=== PATIENT | female | born 1950 | race Caucasian/White ===

== ENCOUNTER → 2016-04-22 | Day surgery (SDC) | payer OTHER ==
[~2016-04-22] VITALS: Ht 162.6 cm; Wt 81.6 kg
--- NOTE | 2016-04-27 11:14 | Operative Report ---
Operative/Inv Procedure Report Surgery Date: 04/22/16 Name of Procedure: cystocele repair with mesh and urethral sling, cystoscopy Pre-Operative Diagnosis: cystocele and stress incontinence Post-Operative Diagnosis: same Estimated Blood Loss: 50ml to 100ml Surgeon/Visual Display Associate: EARNESTINE AGUILAR MD Anesthesia: laryngeal mask airway Implants: vaginal mesh Complications: none Condition: stable Operative Indication: cystocele and stress incontinence Operative/Procedure Note Note: 66yo patient was identified in the holding area and consented for cystocele repair with mesh and urethral sling, cystoscopy. The risks, benefits and alternatives were reviewed with the patient again. All questions were answered. Patient was taken to the operating room and placed on the operating room table in the supine position. A timeout was performed and IV antbiotics were infused. LMA was performed and the patient was placed in the dorsal lithotomy position. She was prepped and draped in the standard sterile fashion. She was shaved prior to the prep. Lone star retractor was placed with 6 stays after a gao catheter was placed into the bladder and drained. The gao was clamped and placed on her abdomen. 1% lidocaine with epinephrine was infiltrated into her anterior vaginal wall. An incision was made from the bladder neck to the apex. The metzenbaum scissors and debakey forceps were used to create the vaginal flaps taking care not to injure the bladder or intestines. The capHenable thin needle device was then used to place 0 prolene sutures in the sacral spinous ligament on the right and left side followed by the bladder neck distal sutures in the arcus tendinious. The Coloplast mesh was then placed with two 2-0 vicryl sutures in the bladder neck and the proximal portion of the apex. The mesh was then secured with the 0 prolene sutures. It was seen to be in good position in a tension free manner elevating the cystocele and enterocele. The area was copiously irrigated with bacitracin irrgation and the vaginal flaps were closed using 2-0 vicryl running locking every third suture. Methylne blue was given at this time to check on the patency of the ureters at a later time. Attention was then turned to the sling portion of the case. 1% lidocaine was infiltrated into the vaginal wall suburethrally. An incision was made suburethrally. The vaginal flaps were created taking care not to injure the urethra. The Coloplast sling kit was opened. The sling was placed in the obturator fascia without difficulty. It was tightened to sit in a tension free manner suburethrally accomodating debakey forceps easily. The prolene tightening loop was cut. The incision was closed after bacitracin irrigation with 3-0 vicryl running locking suture. There was no mesh in the vaginal fornices. A cystocopy was performed at this time. The bladder was globally inspected and there were no defects and ureters were in their normal anatomic position. Good blue efflux was seen emanating from both ureteral orifices. THe bladder was emptied. Vaginal packing with bacitracin was placed into the vaginal vault. The sponge and needle count were correct at the end of the case. THe patient tolerated the procedure well. Findings: no mesh in bladder or urethra or vaginal fornices. Good blue ureteral efflux bilaterally Discharge Disposition: PACU
== END ==
LOC: STS 02:08
DX: N39.3 Stress incontinence (female) (male) (principal); N81.10 Cystocele, unspecified; N95.2 Postmenopausal atrophic vaginitis; Z85.42 Personal history of malignant neoplasm of other parts of uterus; E78.2 Mixed hyperlipidemia; K21.9 Gastro-esophageal reflux disease without esophagitis; Z87.891 Personal history of nicotine dependence
CPT/HCPCS: C1771; J0131; J1580; J2250; J2405